=== PATIENT | female | born 1940 | race Caucasian/White ===

== ENCOUNTER → 2016-10-03 | Outpatient (REF) | payer MEDICARE, BC ==
[2016-10-03 12:58] LABS: PHOSPHORUS LEVEL 3.2 MG/DL (2.5-4.9)
== END ==
LOC: M LAB REF 12:16
DX: E03.9 Hypothyroidism, unspecified (principal); E83.52 Hypercalcemia

== ENCOUNTER → 2017-06-25 | Outpatient (CLI) | payer MEDICARE, BC ==
--- NOTE | 2017-06-25 15:38 | REPMRS ---
Patient History The patient states she has not had a clinical breast exam in over a year. Patient is postmenopausal. No known family history of cancer. Digital Woman Screen Mammo: June 25, 2017 - Exam #: [id number] Bilateral CC and MLO view(s) were taken. Technologist: Marcela Rome, Technologist Prior study comparison: June 15, 2013, digital woman screen mammo performed at [facility] to [facility]. September 25, 2011, bilateral bilat screen digital mammo performed at [facility] to [facility]. FINDINGS: There are scattered fibroglandular densities. There has been no change in the appearance of the mammogram from the prior studies. There is a mild amount of scattered fibroglandular density which is fairly symmetric. There is no interval development of dominant mass, architectural distortion, or clustered microcalcification suggestive of malignancy. ASSESSMENT: BI-RADS/ACR category 1 mammogram. Negative. Recommendation Routine screening mammogram in 1 year (for women over age 40). This mammogram was interpreted with the aid of an FDA-approved computer-aided dectection system. Electronically Signed By: Bryan Beltran MD 06/25/17 [id number]
== END ==
LOC: M WHC 13:34
PROVIDERS: ATTEND Family Medicine
DX: Z12.31 Encounter for screening mammogram for malignant neoplasm of breast (principal)

== ENCOUNTER 2018-01-04 09:35 | Day surgery (SDC) | payer MEDICARE, BC ==
[~2018-01-04 09:35] MED LIST: LIDOCAINE 2% INJ 100 MG/5 ML SDV (FOR ANES.) As Ordered; PROPOFOL 200 MG/20 ML VIAL As Ordered
[2018-01-04] MEDS: NS 1,000 ML IV (09:51)
[2018-01-04 10:04] LABS: BEDSIDE GLUCOSE 128 MG/DL (83-110)
[2018-01-04] MEDS ORDERED: PROPOFOL 200 MG/20 ML VIAL As Ordered (10:16)
== END 2018-01-04 13:00 | disposition home or self-care (01) ==
LOC: M OPP 09:35
DX: Z12.11 Encounter for screening for malignant neoplasm of colon (principal); Z86.010 Personal history of colon polyps; D12.0 Benign neoplasm of cecum; K64.0 First degree hemorrhoids; K57.30 Diverticulosis of large intestine without perforation or abscess without bleeding; R00.8 Other abnormalities of heart beat; I10 Essential (primary) hypertension; E78.5 Hyperlipidemia, unspecified; E11.9 Type 2 diabetes mellitus without complications; D64.9 Anemia, unspecified; Z86.11 Personal history of tuberculosis; M19.90 Unspecified osteoarthritis, unspecified site; F41.9 Anxiety disorder, unspecified; Z88.0 Allergy status to penicillin; Z79.84 Long term (current) use of oral hypoglycemic drugs; Z79.899 Other long term (current) drug therapy; Z80.1 Family history of malignant neoplasm of trachea, bronchus and lung; Z87.891 Personal history of nicotine dependence
CPT/HCPCS: 45380

== ENCOUNTER → 2020-02-02 | Outpatient (REF) | payer MEDICARE, BC ==
[~2020-02-02] MED LIST changes: +HAIR1CAP2 PO; +HAIRTAB5 PO; -LIDOCAINE 2% INJ 100 MG/5 ML SDV (FOR ANES.) As Ordered; +LOSA25TA14 PO; +METF500T13 PO; +METO1TAB87 PO; +MULTCHW14 PO; -PROPOFOL 200 MG/20 ML VIAL As Ordered; +SERT50TA29 PO; +SIMV20TA22 PO; +VITA100066 PO
[2020-02-02 18:05] LABS: PERCENT SATURATION 36.3 % (13.2-45.0)
== END ==
LOC: M LAB REF 16:20
PROVIDERS: ATTEND Family Medicine
DX: D56.9 Thalassemia, unspecified (principal); D64.9 Anemia, unspecified

== ENCOUNTER 2020-12-03 10:00 | Inpatient (IN) | payer MEDICARE, BC ==
[~2020-12-03] VITALS: Ht 165.1 cm; Wt 101.0 kg
[2020-12-03] MEDS ORDERED: CLOP75TA2 PO (10:28)
--- NOTE | 2020-12-03 10:43 | REP ---
INDICATION: vertigo. COMPARISON: CT head 02/26/2015. TECHNIQUE: Axial CT images with multiplanar reformations. FINDINGS: No acute bleed or acute large vessel territorial infarct. Ventricles, cisterns and sulci within normal limits. No mass effect or midline shift. No abnormal fluid collections. Paranasal sinuses and mastoid air cells are clear. Incidental note made of cavum septum pellucidum et vergae Old right cerebellar infarct is unchanged from the comparison study 02/26/2015. IMPRESSION: No acute findings Old right cerebellar infarct, stable. <Electronically signed by Chris Tan > 12/03/20 [id number]
[2020-12-03] MEDS ORDERED: LOSARTAN 25 MG TAB PO ONE (11:15)
[2020-12-03] MEDS ORDERED: CLOPIDOGREL 75 MG TAB PO ONE (11:15)
[2020-12-03] MEDS ORDERED: METOPROLOL TART 25 MG TABLET PO ONE (11:15)
[2020-12-03] MEDS ORDERED: metFORMIN (GLUCOPHAGE) 500MG TAB PO ONE (11:15)
[2020-12-03] MEDS ORDERED: SERTRALINE HCL 50 MG TAB PO ONE (11:15)
[2020-12-03 11:16] LABS: HEMATOCRIT 33.4 % (36.0-47.0); HEMOGLOBIN 10.3 g/dl (12.0-15.5); MEAN CORPUSCULAR HEMOGLOBIN 20.7 pg (27.0-33.0); MEAN CORPUSCULAR HGB CONC 30.8 g/dl (32.0-36.5); MEAN CORPUSCULAR VOLUME 67.2 fl (80.0-96.0); PLATELET COUNT, AUTOMATED 172 10^3/uL (150-450); RED BLOOD COUNT 4.97 10^6/uL (4.00-5.40); WHITE BLOOD COUNT 7.4 10^3/uL (4.0-10.0)
[2020-12-03 11:47] LABS: BLOOD UREA NITROGEN 13 MG/DL (7-18); CARBON DIOXIDE LEVEL 23 MEQ/L (21-32); CHLORIDE LEVEL 108 MEQ/L (98-107); CK-MB VALUE MASS < 1.0 NG/ML (<3.6); CPK CREATINE PHOSPHOKINASE 39 U/L (26-192); CREATININE FOR GFR 0.67 MG/DL (0.55-1.30); GLOMERULAR FILTRATION RATE > 60.0 (>39); GLUCOSE, FASTING 120 MG/DL (70-100); MB/CK RELATIVE INDEX 2.56 (< OR =4); SODIUM LEVEL 140 MEQ/L (136-145); TROPONIN I 0.04 NG/ML (< 0.10)
--- NOTE | 2020-12-03 13:57 | REP ---
INDICATION: CVA. COMPARISON: None. TECHNIQUE: Axial T1, T2, diffusion, gradient echo and sagittal T1 weighted images of the brain are obtained. FINDINGS: There is a small focus of restricted diffusion posterior to the right dentate nucleus within the cerebellum. There are scattered white matter changes within the cerebellar hemispheres. There is tissue loss in the right cerebellar hemisphere consistent with prior infarction. Small amount tissue loss also seen on the left. Scattered nonspecific white matter changes are seen throughout the cerebral hemispheres. IMPRESSION: 1. Small wugtn-ii-slkwdusn infarct in the right cerebellar hemisphere posterior to the right dentate nucleus. No hemorrhage. 2. Old cerebellar infarcts, greater on the right. 3. Age-related volume loss and chronic small vessel ischemic changes. Findings discussed with Dr. Rios at the time of interpretation. <Electronically signed by Chris Tan > 12/03/20 [id number]
[2020-12-03] MEDS ORDERED: CVS-161 PO (14:50)
[2020-12-03] MEDS ORDERED: D31000TA2 PO (14:50)
--- NOTE | 2020-12-03 15:31 | ECGEPIP ---
[facility] - ED Test Date: 2020-12-03 Pat Name: NICK POLLARD Department: Room: - Gender: Female Manager Community Outreach: HERNÁN : [id number] Requested By: Charli Rosen Order Number: [id number] Reading MD: Sammy Haynes Measurements Intervals [place] Rate: 65 P: 88 ID: [id number] QRS: -36 QRSD: 78 T: -27 QT: 400 QTc: 416 Interpretive Statements Normal sinus rhythm Left axis deviation Minimal voltage criteria for LVH, may be normal variant ( R in aVL ) Delayed anterior R wave progression Nonspecific ST-T wave abnormalities Similar to tracing done 02-26-15 Electronically Signed on 12-03-2020 15:31:26 EDT by Sammy Haynes
[2020-12-03] MEDS ORDERED: GLUCOSE 4GM CHEW TABLET PO PRN (15:35)
[2020-12-03] MEDS ORDERED: GLUCAGON INJ 1MG VIAL SC PRN (15:35)
[2020-12-03] MEDS ORDERED: DEXTROSE 50% 50 ML SYRINGE IV PRN (15:35)
--- NOTE | 2020-12-03 16:30 | REP ---
INDICATION: CVA. COMPARISON: None. TECHNIQUE: [id number] MRA of the brain. FINDINGS: The left vertebral artery is dominant. Basilar artery and cookie mixer helper are unremarkable. Internal carotid arteries, proximal and distal MCA branches are normal. A1 segments and YELENA branches are unremarkable. IMPRESSION: Normal examination. <Electronically signed by Chris Tan > 12/03/20 [id number]
--- NOTE | 2020-12-03 16:32 | REP ---
INDICATION: CVA. COMPARISON: None. TECHNIQUE: [id number] MRA of the neck FINDINGS: On the right, the common and internal carotid arteries are widely patent. Vertebral artery is present throughout its cervical course. On the left, the common and internal carotid arteries are widely patent. Vertebral artery is present throughout its cervical course. IMPRESSION: Normal examination. No evidence of a carotid stenosis or occlusion. Vertebral arteries present and patent throughout their cervical course. <Electronically signed by Chris Tan > 12/03/20 [id number]
--- NOTE | 2020-12-03 16:52 | HPEPDOC ---
General Date of Admission Dec 03, 2020 Date of Service: Dec 03, 2020 Chief Complaint The patient is a 80-year-old female admitted with a reason for visit of Dizziness. Source: Patient History of Present Illness Mrs. Gates is a 80 year old female with history of old cerebellar infarcts, DM type 2, and HTN who presents with vertigo. Yesterday, she was in good health. This morning, she sat up in bed feeling off. She didn't know how to describe it. She laid back down and suddenly had vertigo. She felt the room spin, and she had double vision. She felt nauseous but did not vomit. Denies fever/chills, chest pain, dyspnea, abdominal pain, or dysuria. She called her daughter who called EMS. When EMS arrived, she could not stand to reach the stretcher. By the time she arrived to the ED, the vertigo was improving and the vertigo sensation gradually disappeared. In the ED, she had a CT head which demonstrated old right cerebellar infarct. On MRI, she had an acute to subacute infarct in the right cerebellar hemisphere posterior to the right dentate nucleus. There are also old cerebrellar infarcts, greater on the right. When I spoke with the patient, she no longer had vertigo. Neurologically intact, CN 3-12 grossly intact, pronator drift negative, and finger to nose is intact. Otherwise, patient is going through grief. She lost her a year ago. She has been having poor sleep, poor appetite, and feeling fatigued. She does have good support from her offsprings. She also recently had COVID vaccine (Moderna) and her last vaccine was 10/09/2020. She wonders if her fatigue is related to the vaccine. Patient will be admitted for acute CVA. We will finish the rest of the stroke work up here. Home Medications Scheduled Cholecalciferol (Vitamin D3) (Vitamin D3) 1,000 Unit Tablet, 1,000 UNITS PO DAILY, (Reported) Clopidogrel Bisulfate (Clopidogrel) 75 Mg Tablet, 75 MG PO DAILY, (Reported) Losartan Potassium (Losartan Potassium) 25 Mg Tab, 25 MG PO DAILY, (Reported) Metformin HCl (Metformin HCl) 500 Mg Tab, 500 MG PO BID, (Reported) Metoprolol Tartrate (Metoprolol Tartrate) 25 Mg Tab, 25 MG PO BID, (Reported) Multivitamin with Minerals (Hair, Skin and Nails) 1 Each Tablet, 2 TAB PO DAILY, (Reported) Sertraline HCl (Sertraline HCl) 50 Mg Tab, 50 MG PO DAILY, (Reported) Simvastatin (Simvastatin) 20 Mg Tab, 20 MG PO QHS, (Reported) Allergies Coded Allergies: RUKHSANA Inhibitors (Verified Allergy, Severe, angioedema, 12/03/20) aspirin (Verified Allergy, Severe, angioedema, 12/03/20) Penicillins (Verified Allergy, Intermediate, hives, 12/03/20) Past Medical History Medical History 1. Hypertension 2. Diabetes mellitus type 2 3. History of SVT broken with vagal maneuvers 4. Hyperlipidemia 5. Anxiety 6. Bilateral carpal tunnel Surgical History 1. Total hysterectomy 2. Cholecystectomy 3. Ovarian cyst 4. Left hand carpel tunnel release Family History Father: Patient does not know father's PMH Mother: from lung cancer Social History * Smoker: former Smoker (quit 52 years ago) Alcohol: Denies Drugs: denies A-FIB/CHADSVASC A-FIB History Current/History of A-Fib/PAF?: No Review of Systems Constitutional: Reports: Fatigue; Denies: Chills, Fever Eyes: Reports: Other (Had double vision when she had vertigo, now resolved) ENT: Denies: Sore Throat Skin: Denies: Rash Pulmonary: Denies: Dyspnea Cardiovascular: Reports: Palpitations (Occasional); Denies: Chest Pain Gastrointestinal: Reports: Nausea, Vomiting; Denies: Abdominal Pain, Diarrhea, Constipation Genitourinary: Denies: Dysuria Neurological: Reports: Numbness (right hand 2/2 carpal tunnel) Psych: Reports: Anxiety, Depression Physical Examination General Exam: Positive: Alert, Cooperative Eye Exam: Positive: EOMI; Negative: Sclera icteric ENT Exam: Positive: Atraumatic Neck Exam: Positive: Supple Chest Exam: Positive: Clear to auscultation; Negative: Rales, Rhonchi, Wheezing Heart Exam: Positive: Rate Normal, Regular Rhythm Abdomen Exam: Positive: Normal bowel sounds, Soft; Negative: Tenderness Extremity Exam: Positive: Edema (bilateral pitting) Neuro Exam: Positive: Normal Gait, Normal Speech, Cranial Nerves 3-12 NL Psych Exam: Positive: Anxiety Vital Signs Vital Signs Date Time Temp Pulse Resp B/P (MAP) Pulse Ox O2 Delivery O2 Flow Rate FiO2 12/03/20 11:49 167/74 12/03/20 11:48 67 12/03/20 10:15 97.6 20 98 Room Air Laboratory Data Labs 24H Laboratory Tests 2 12/03/20 10:59: Bedside Glucose (Misc Panel) 136H 12/03/20 11:04: Nucleated Red Blood Cells % (auto) 0.0, Anion Gap 9, Glomerular Filtration Rate > 60.0, Calcium Level 10.0, Total Creatine Kinase 39, Creatine Kinase MB < 1.0, Creatine Kinase MB Relative Index 2.56, Troponin I 0.04 CBC/BMP Laboratory Tests 12/03/20 11:04 Assessment/Plan Mrs. Gates is a 80 year old female with history of old cerebellar infarcts, DM type 2, and HTN who presents with vertigo and fount to have acute/subacute infarct in the right cerebellar hemisphere. Vertigo now has resolved. Will complete stroke work up with telemetry, echocardiogram with bubble study, MRA of the head and neck. Otherwise, we will order PT/OT Plan / VTE VTE Prophylaxis Ordered?: Yes Plan Plan 1. Acute right cerebellar infarct -Presented as vertigo, now resolved -Complete the stroke work up with MRA head and neck, echocardiogram with bubble study, and telemetry -Spoke with neurology, Dr. Bernard -Continue clopidogrel and simvastatin -Obtaining HbA1c and Lipid panel (will determine to increase statin based off of lipid panel) -Allow for permissive hypertension (SBP between 140 to 180) 2. Diabetes mellitus type 2 -Hold metformin while inpatient -Sliding scale insulin -Carbohydrate consistent diet 3. Anxiety/depression/grief -Continue Sertraline 4. Hypertension -Continue metoprolol tartrate -Hold losartan 5. History of SVT -She has broke in the past with vagal maneuvers -Continue metoprolol tartrate 6. DVT ppx -SCD and TEDs Disposition: Pending stroke work up LOUANN FREGOSO DO Dec 03, 2020 16:04
[2020-12-03 17:30] VITALS: BP 154/68
[2020-12-03] MEDS: HumaLOG INSULIN (NovoLOG) PER UNIT SC SCH ×2 (17:30→20:23)
[2020-12-03] MEDS: METOPROLOL TART 25 MG TABLET PO SCH (20:58)
[2020-12-03] MEDS: SIMVASTATIN 20 MG TAB PO SCH (20:59)
[2020-12-03 22:00] VITALS: BP 125/64
[2020-12-04 06:00] VITALS: BP 168/76
[2020-12-04 06:26] LABS: HEMATOCRIT 32.2 % (36.0-47.0); MEAN CORPUSCULAR HEMOGLOBIN 20.8 pg (27.0-33.0); MEAN CORPUSCULAR HGB CONC 31.1 g/dl (32.0-36.5); MEAN CORPUSCULAR VOLUME 66.9 fl (80.0-96.0); PLATELET COUNT, AUTOMATED 176 10^3/uL (150-450); RED BLOOD COUNT 4.81 10^6/uL (4.00-5.40); WHITE BLOOD COUNT 6.3 10^3/uL (4.0-10.0)
[2020-12-04 06:44] LABS: HEMOGLOBIN A1c 5.4 %
[2020-12-04 06:59] LABS: BLOOD UREA NITROGEN 12 MG/DL (7-18); CALCIUM LEVEL 9.9 MG/DL (8.8-10.2); CARBON DIOXIDE LEVEL 26 MEQ/L (21-32); CHLORIDE LEVEL 108 MEQ/L (98-107); CHOLESTEROL LEVEL 198 MG/DL (<200); CREATININE FOR GFR 0.64 MG/DL (0.55-1.30); GLOMERULAR FILTRATION RATE > 60.0 (>39); GLUCOSE, FASTING 100 MG/DL (70-100); HDL CHOLESTEROL 55 MG/DL (>40); LDL CHOLESTEROL 107 MG/DL (<100); NON-HDL-C 143 MG/DL; POTASSIUM SERUM 4.2 MEQ/L (3.5-5.1); SODIUM LEVEL 143 MEQ/L (136-145); TRIGLYCERIDES LEVEL 178 MG/DL (<150)
[2020-12-04] MEDS: HumaLOG INSULIN (NovoLOG) PER UNIT SC SCH ×4 (07:30→20:26)
[2020-12-04] MEDS ORDERED: ROSUVASTATIN 10 MG TAB (CRESTOR) PO SCH (09:00)
[2020-12-04] MEDS: CLOPIDOGREL 75 MG TAB PO SCH (10:15)
[2020-12-04] MEDS: SERTRALINE HCL 50 MG TAB PO SCH (10:15)
[2020-12-04] MEDS: VITAMIN D 1,000 INTERNATIONAL UNITS TABLET PO SCH (10:15)
[2020-12-04] MEDS: METOPROLOL TART 25 MG TABLET PO SCH ×2 (10:21→20:33)
[2020-12-04] MEDS ORDERED: ASPIRIN 81MG ENTERIC TABLET PO ONE (13:10)
--- NOTE | 2020-12-04 13:20 | IPNPDOC ---
Subjective Date Seen The patient was seen on 12/04/20. Subjective Chief Complaint/HPI No complaints this morning. No dizziness or nausea. No weakness. Objective Physical Examination General Exam: Positive: Alert, Cooperative Eye Exam: Positive: EOMI; Negative: Sclera icteric ENT Exam: Positive: Atraumatic Neck Exam: Positive: Supple Chest Exam: Positive: Clear to auscultation; Negative: Rales, Rhonchi, Wheezing Heart Exam: Positive: Rate Normal, Regular Rhythm Abdomen Exam: Positive: Normal bowel sounds, Soft; Negative: Tenderness Extremity Exam: Positive: Edema (bilateral pitting) Neuro Exam: Positive: Normal Gait, Normal Speech, Cranial Nerves 3-12 NL Psych Exam: Positive: Anxiety Assessment /Plan Assessment Mrs. Gates is a 80 year old female with history of old cerebellar infarcts, DM type 2, and HTN who presents with vertigo and fount to have acute/subacute infarct in the right cerebellar hemisphere. Vertigo now has resolved. Will complete stroke work up with telemetry, echocardiogram with bubble study, MRA of the head and neck. Otherwise, we will order PT/OT Acute right cerebellar infarct Presented as vertigo, now resolved MRI: There is a small focus of restricted diffusion posterior to the right dentate nucleus within the cerebellum.There are scattered white matter changes within the cerebellar hemispheres. There is tissue loss in the right cerebellar hemisphere consistent with prior infarction. Small amount tissue loss also seen on the left. MRA carotids clean, MRA head negative. Complete the stroke work up with MRA head and neck, echocardiogram with bubble study, and telemetry Continue clopidogrel and simvastatin will add asa. Allow for permissive hypertension (SBP between 140 to 180) Patient carries a diagnosis of allergy ASA as angioedema. however she does not believe it was so. At the time she had angioedema she was on ACEI and ASA and both were stopped . SHe believes it was the ACEI as it was a new med for her and she had been on ASA for years. She is Willing to try ASA while she is in [facility]. will start ASA. Diabetes mellitus type 2 Hold metformin while inpatient Sliding scale insulin Carbohydrate consistent diet Anxiety/depression/grief Lost her last year. Continue Sertraline Hypertension Continue metoprolol tartrate Hold losartan History of SVT She has broke in the past with vagal maneuvers Continue metoprolol tartrate DVT ppx SCD and TEDs Plan/VTE VTE Prophylaxis Ordered?: Yes VS, I&O, 24H, Fishbone Vital Signs/I&O Vital Signs Date Time Temp Pulse Resp B/P (MAP) Pulse Ox O2 Delivery O2 Flow Rate FiO2 12/04/20 10:21 83 121/73 12/04/20 06:00 97.9 18 93 Room Air I&O- Last 24 Hours up to 6 AM 12/04/20 06:00 Intake Total 150 ml Output Total 0 ml Balance 150 ml Laboratory Data 24H LABS Laboratory Tests 2 12/03/20 17:47: Bedside Glucose (Misc Panel) 120H 12/03/20 20:01: Bedside Glucose (Misc Panel) 120H 12/04/20 05:55: Nucleated Red Blood Cells % (auto) 0.0, Anion Gap 9, Glomerular Filtration Rate > 60.0, Estimated Mean Plasma Glucose 108, Hemoglobin A1c 5.4, Calcium Level 9.9, Triglycerides Level 178H, Total Cholesterol 198, LDL Cholesterol 107H, Non- HDL Cholesterol (LDL + VLDL) 143, Total HDL Cholesterol 55, Cholesterol/HDL Ratio 3.600 12/04/20 12:14: Bedside Glucose (Misc Panel) 114H CBC/BMP Laboratory Tests 12/04/20 05:55 Microbiology Microbiology 12/03/20 Respiratory Virus Panel (PCR) ([facility]) - Final, Complete CHANDNI GUAN MD Dec 04, 2020 13:20
[2020-12-04 14:00] VITALS: BP 134/68
[2020-12-04] MEDS: SIMVASTATIN 20 MG TAB PO SCH (20:33)
[2020-12-04 22:00] VITALS: BP 153/73
[2020-12-05 06:00] VITALS: BP 127/63
[2020-12-05 06:21] LABS: HEMATOCRIT 31.2 % (36.0-47.0); HEMOGLOBIN 9.7 g/dl (12.0-15.5); MEAN CORPUSCULAR HEMOGLOBIN 20.7 pg (27.0-33.0); MEAN CORPUSCULAR HGB CONC 31.1 g/dl (32.0-36.5); MEAN CORPUSCULAR VOLUME 66.7 fl (80.0-96.0); PLATELET COUNT, AUTOMATED 168 10^3/uL (150-450); RED BLOOD COUNT 4.68 10^6/uL (4.00-5.40)
[2020-12-05 06:47] LABS: BLOOD UREA NITROGEN 12 MG/DL (7-18); CALCIUM LEVEL 9.7 MG/DL (8.8-10.2); CARBON DIOXIDE LEVEL 26 MEQ/L (21-32); CHLORIDE LEVEL 107 MEQ/L (98-107); CREATININE FOR GFR 0.62 MG/DL (0.55-1.30); GLOMERULAR FILTRATION RATE > 60.0 (>39); GLUCOSE, FASTING 116 MG/DL (70-100); POTASSIUM SERUM 4.1 MEQ/L (3.5-5.1); SODIUM LEVEL 140 MEQ/L (136-145)
[2020-12-05] MEDS: HumaLOG INSULIN (NovoLOG) PER UNIT SC SCH ×2 (08:19→12:00)
[2020-12-05 08:20] VITALS: BP 127/63
[2020-12-05] MEDS: METOPROLOL TART 25 MG TABLET PO SCH (08:20)
[2020-12-05] MEDS: CLOPIDOGREL 75 MG TAB PO SCH (08:20)
[2020-12-05] MEDS: SERTRALINE HCL 50 MG TAB PO SCH (08:20)
[2020-12-05] MEDS: VITAMIN D 1,000 INTERNATIONAL UNITS TABLET PO SCH (08:20)
[2020-12-05] MEDS ORDERED: ASPIRIN 81MG ENTERIC TABLET PO SCH (09:00)
[2020-12-05] MEDS ORDERED: ASPI-551 PO (12:47)
[2020-12-05] MEDS ORDERED: SIMV40TA20 PO (13:50)
--- NOTE | 2020-12-05 14:56 | REP ---
INDICATION: evaluate for dvt , multiple strokes, positive bubble study COMPARISON: None. TECHNIQUE: Ellington scale and color Doppler evaluation bilateral lower extremities using linear high frequency transducer. FINDINGS: Ultrasound examination of the right and left lower extremity deep venous structures from the common femoral vein to the popliteal vein demonstrates normal compressibility flow and wave patterns in response to respiration and augmentation. There is no evidence for deep venous thrombosis. IMPRESSION: No evidence for deep venous thrombosis. <Electronically signed by Mathtew Andrade > 12/05/20 [id number]
[2020-12-05 16:00] VITALS: BP 124/68
--- NOTE | 2020-12-05 16:42 | DS.PDOC ---
Discharge Summary General Date of Admission Dec 03, 2020 at 15:23 Date of Discharge 12/05/20 Discharge Summary PROCEDURES PERFORMED DURING STAY: [None]. DISCHARGE DIAGNOSES: Acute on Chronic Right Cerebellar stoke SECONDARY DIAGNOSIS: DM HLD HTN Depression/anxiety/grief H/O SVT COMPLICATIONS/CHIEF COMPLAINT: Cerebrovascular Accident (Cva) Involving Cere bellu. HOSPITAL COURSE: Mrs. Gates is a 80 year old female with history of old cerebellar infarcts, DM type 2, and HTN who presents with vertigo and fount to have acute/subacute infarct in the right cerebellar hemisphere. Vertigo now has resolved. Will complete stroke work up with telemetry, echocardiogram with bubble study, MRA of the head and neck. Otherwise, we will order PT/OT Acute right cerebellar infarct Presented as vertigo, now resolved MRI: There is a small focus of restricted diffusion posterior to the right dentate nucleus within the cerebellum.There are scattered white matter changes within the cerebellar hemispheres. There is tissue loss in the right cerebellar hemisphere consistent with prior infarction. Small amount tissue loss also seen on the left. MRA carotids clean, MRA head negative. echocardiogram with bubble study positive On telemetry no cardiac arrhythmic events. Continue clopidogrel and simvastatin will added asa. Patient carries a diagnosis of allergy ASA as angioedema. however she does not believe it was so. At the time she had angioedema she was on ACEI and ASA and both were stopped . SHe believes it was the ACEI as it was a new med for her and she had been on ASA for years. She is Willing to try ASA while she is in the hospital. Patient tolerated ASA . Bubble study during echo positive Bilateral lower Ex dvt negative. referred to Dr Alberts for further evaluation Diabetes mellitus type 2 resume home meds Anxiety/depression/grief Lost her last year. Continue Sertraline Hypertension Continue metoprolol tartrate Hold losartan History of SVT She has broke in the past with vagal maneuvers Continue metoprolol tartrate DISCHARGE MEDICATIONS: Please see below. ALLERGIES: Please see below. PHYSICAL EXAMINATION ON DISCHARGE: VITAL SIGNS: Please see below. General Exam: Positive: Alert, Cooperative Eye Exam: Positive: EOMI; Negative: Sclera icteric ENT Exam: Positive: Atraumatic Neck Exam: Positive: Supple Chest Exam: Positive: Clear to auscultation; Negative: Rales, Rhonchi, Wheezing Heart Exam: Positive: Rate Normal, Regular Rhythm Abdomen Exam: Positive: Normal bowel sounds, Soft; Negative: Tenderness Extremity Exam: Positive: Edema (bilateral pitting) Neuro Exam: Positive: Normal Gait, Normal Speech, Cranial Nerves 3-12 NL Psych Exam: Positive: Anxiety LABORATORY DATA: Please see below. IMAGING: MRI: FINDINGS: There is a small focus of restricted diffusion posterior to the right dentate nucleus within the cerebellum. There are scattered white matter changes within the cerebellar hemispheres. There is tissue loss in the right cerebellar hemisphere consistent with prior infarction. Small amount tissue loss also seen on the left. Scattered nonspecific white matter changes are seen throughout the cerebral hemispheres. IMPRESSION: 1. Small pratk-cd-xjfiprsb infarct in the right cerebellar hemisphere posterior to the right dentate nucleus. No hemorrhage. 2. Old cerebellar infarcts, greater on the right. 3. Age-related volume loss and chronic small vessel ischemic changes. MRA: FINDINGS: The left vertebral artery is dominant. Basilar artery and operators teacher are unremarkable. Internal carotid arteries, proximal and distal MCA branches are normal. A1 segments and YELENA branches are unremarkable. IMPRESSION: Normal examination. Carotid MRI: On the right, the common and internal carotid arteries are widely patent. Vertebral artery is present throughout its cervical course. On the left, the common and internal carotid arteries are widely patent. Vertebral artery is present throughout its cervical course. IMPRESSION: Normal examination. No evidence of a carotid stenosis or occlusion. Vertebral arteries present and patent throughout their cervical course. ACTIVITY: [As tolerated]. DIET: Carb consistent DISCHARGE PLAN: Home DISCHARGE INSTRUCTIONS: Follow up with PMD in 1 week Follow up wit Dr Marshall Follow up with Dr Alberts. ITEMS TO FOLLOWUP ON ON OUTPATIENT: Echo reports. DISCHARGE CONDITION: [Stable]. TIME SPENT ON DISCHARGE: 40 minutes. Vital Signs/I&Os Vital Signs Date Time Temp Pulse Resp B/P (MAP) Pulse Ox O2 Delivery O2 Flow Rate FiO2 12/05/20 08:20 69 127/63 12/05/20 06:00 97.4 18 95 Room Air I&O- Last 24 Hours up to 6 AM 12/05/20 07:00 Intake Total 880 ml Output Total 0 ml Balance 880 ml Laboratory Data Labs 24H Laboratory Tests 2 12/04/20 20:11: Bedside Glucose (Misc Panel) 119H 12/05/20 05:46: Nucleated Red Blood Cells % (auto) 0.0, Anion Gap 7L, Glomerular Filtration Rate > 60.0, Calcium Level 9.7 4/21/21 11:41: Bedside Glucose (Misc Panel) 112H CBC/BMP Laboratory Tests 12/05/20 05:46 FSBS Laboratory Tests Test 12/04/20 20:11 12/05/20 11:41 Range/Units Bedside Glucose (Misc Panel) 119 112 83-110 MG/DL Microbiology Microbiology 12/03/20 Respiratory Virus Panel (PCR) ([facility]) - Final, Complete Discharge Medications Scheduled Aspirin (Aspirin EC) 81 Mg Tablet.dr, 81 MG PO DAILY Cholecalciferol (Vitamin D3) (Vitamin D3) 1,000 Unit Tablet, 1,000 UNITS PO DAILY, (Reported) Clopidogrel Bisulfate (Clopidogrel) 75 Mg Tablet, 75 MG PO DAILY, (Reported) Losartan Potassium (Losartan Potassium) 25 Mg Tab, 25 MG PO DAILY, (Reported) Metformin HCl (Metformin HCl) 500 Mg Tab, 500 MG PO BID, (Reported) Metoprolol Tartrate (Metoprolol Tartrate) 25 Mg Tab, 25 MG PO BID, (Reported) Multivitamin with Minerals (Hair, Skin and Nails) 1 Each Tablet, 2 TAB PO DAILY, (Reported) Sertraline HCl (Sertraline HCl) 50 Mg Tab, 50 MG PO DAILY, (Reported) Simvastatin (Simvastatin) 40 Mg Tablet, 40 MG PO QPM Allergies Coded Allergies: RUKHSANA Inhibitors (Verified Allergy, Severe, angioedema, 12/03/20) aspirin (Verified Allergy, Severe, angioedema, 12/03/20) Penicillins (Verified Allergy, Intermediate, hives, 12/03/20) CHANDNI GUAN MD Dec 05, 2020 16:42
--- NOTE | 2020-12-06 09:46 | ECHO ---
DATE OF PROCEDURE: 12/05/2020 Age: 80 Gender: Female Height: 165 cm Weight: 100 kg REFERRING PHYSICIAN: Florian Arora DO. INDICATION: Stroke. MEASUREMENTS: IVS 1.2 cm LV 5.1 cm LVPW 1.0 cm LA 3.8 cm Aorta 3.3 cm Left atrial volume index 30 IVC 2.2 cm Mitral E wave velocity 80 cm/s Mitral A wave 111 cm/s FINDINGS: This study is of acceptable technical quality considering the patients body habitus. Underlying sinus rhythm. Left ventricle has normal size and systolic function, I estimate overall EF approximately 65%. Mild LVH is noted. Right ventricle appears normal size and systolic function. Left atrium is mildly enlarged. Right atrium is normal size. Aortic valve is sclerotic, but it is tricuspid and has preserved mobility. There are minimal degenerative abnormalities of the mitral valve with mitral annular calcifications, but mobility of leaflets is preserved. Tricuspid valve appears normal. Pulmonic valve was not well seen. No pericardial effusion is noted. Inferior vena cava is dilated, but collapses with inspiration indicative of mildly elevated central venous pressure. Aortic arch and visualized segment of the aortic arch appear normal. Doppler interrogation of the aortic valve reveals trace insufficiency and no stenosis. There is also trace mitral and mild tricuspid insufficiency. Calculated pulmonary artery pressure is in the 30s corresponding to mild pulmonary hypertension. Mitral inflow pattern indicates grade 1 diastolic dysfunction. Injection of agitated saline through the peripheral veins reveals crossing of the contrast from right-sided to left-sided high chambers indicative of intracardiac shunt. CONCLUSIONS: 1. Study is of acceptable technical quality, underlying sinus rhythm. 2. Normal LV size with mild LVH and preserved LV systolic function. Grade 1 diastolic dysfunction. 3. Aortic sclerosis with no stenosis and trace insufficiency. 4. Trace mitral insufficiency. 5. Mild tricuspid insufficiency. 6. Elevated central venous pressure and at least mild pulmonary hypertension. 7. Positive bubble study indicative of intracardiac shunt. MTDD
== END 2020-12-05 16:56 | disposition home or self-care (01) | DRG 66 ==
LOC: M ED 10:00 → EDBD 10:00 → M ED INP 15:23 → ENRESERV 16:23 → M MSPAV 17:25
PROVIDERS: ADMIT Internal Medicine; ATTEND Internal Medicine Nephrology
DX: I63.9 Cerebral infarction, unspecified (principal); E11.9 Type 2 diabetes mellitus without complications; I10 Essential (primary) hypertension; F32.9 Major depressive disorder, single episode, unspecified; F41.9 Anxiety disorder, unspecified; Z79.899 Other long term (current) drug therapy; Z88.6 Allergy status to analgesic agent; Z88.0 Allergy status to penicillin; E78.5 Hyperlipidemia, unspecified

== ENCOUNTER → 2020-12-31 | Outpatient (CLI) | payer MEDICARE, BC ==
[~2020-12-31] MED LIST changes: +ASPI-551 PO; +CLOP75TA2 PO; +CVS-161 PO; +D31000TA2 PO; +SIMV40TA20 PO
== END ==
LOC: M LABSMTC 13:41
PROVIDERS: ATTEND Internal Medicine Cardiovascular Disease
DX: Z20.828 Contact with and (suspected) exposure to other viral communicable diseases (principal); Z11.59 Encounter for screening for other viral diseases

== ENCOUNTER → 2021-06-07 | Outpatient (CLI) | payer MEDICARE, BC | LOC: M LABSMTC 09:37 | PROVIDERS: ATTEND Internal Medicine Cardiovascular Disease | DX: Q21.1 Atrial septal defect (principal) ==

== ENCOUNTER → 2021-12-18 | Outpatient (REF) | payer MEDICARE, BC ==
[~2021-12-18] MED LIST changes: -D31000TA2 PO; +LOSA25TA13 PO; -LOSA25TA14 PO; +VITA100093 PO
== END ==
LOC: M LAB REF 12:27
PROVIDERS: ATTEND Family Medicine
DX: D64.9 Anemia, unspecified (principal)

== ENCOUNTER 2022-03-14 05:24 | Emergency (ER) | payer MEDICARE, BC ==
[~2022-03-14] VITALS: Ht 167.6 cm; Wt 90.9 kg
[2022-03-14] MEDS ORDERED: CRES10TA PO (06:11)
[2022-03-14] MEDS ORDERED: LIDOCAINE W/EPINEPHRINE 1% 20ML VIAL SC ONE (09:10)
[2022-03-14] MEDS ORDERED: fentaNYL 100 MCG/2 ML INJECTION IV ONE (09:10)
[2022-03-14 09:44] LABS: BASO % 0.3 % (0.0-1.0); EOS # 0.1 10^3/uL (0.0-0.5); EOS % 0.5 % (0.0-3.0); HEMATOCRIT 31.2 % (36.0-47.0); HEMOGLOBIN 9.8 g/dl (12.0-15.5); LYMPH # 1.4 10^3/uL (1.5-5.0); LYMPH % 13.8 % (24.0-44.0); MEAN CORPUSCULAR HEMOGLOBIN 20.7 pg (27.0-33.0); MEAN CORPUSCULAR HGB CONC 31.4 g/dl (32.0-36.5); MONO # 0.9 10^3/uL (0.0-0.8); NEUTROPHILS # 7.9 10^3/uL (1.5-8.5); NEUTROPHILS % 75.9 % (36.0-66.0); PLATELET COUNT, AUTOMATED 169 10^3/uL (150-450); RED BLOOD COUNT 4.73 10^6/uL (4.00-5.40); WHITE BLOOD COUNT 10.4 10^3/uL (4.0-10.0)
[2022-03-14 10:04] LABS: BLOOD UREA NITROGEN 18 MG/DL (7-18); CALCIUM LEVEL 9.8 MG/DL (8.8-10.2); CARBON DIOXIDE LEVEL 23 MEQ/L (21-32); CHLORIDE LEVEL 111 MEQ/L (98-107); CREATININE FOR GFR 0.76 MG/DL (0.55-1.30); GLOMERULAR FILTRATION RATE > 60.0 (>39); GLUCOSE, FASTING 110 MG/DL (70-100); POTASSIUM SERUM 4.4 MEQ/L (3.5-5.1); SODIUM LEVEL 142 MEQ/L (136-145)
[2022-03-14] MEDS ORDERED: MORPHINE 2 MG/ML 1ML VIAL IV ONE (10:25)
[2022-03-14] MEDS ORDERED: ONDANSETRON 4MG 2ML VIAL IV ONE (10:25)
[2022-03-14] MEDS ORDERED: NS 500 ML IV ONE (10:25)
[2022-03-14] MEDS ORDERED: propofoL 200 MG/20 ML VIAL IV.PROC PRN (11:30)
[2022-03-14] MEDS ORDERED: NS 1,000 ML IV SCH (11:30)
[2022-03-14] MEDS ORDERED: KETAMINE HCL 200 MG/20 ML VIAL IV ONE (11:30)
[2022-03-14 13:15] VITALS: BP 146/65
== END 2022-03-14 13:58 | disposition home or self-care (01) ==
LOC: M ED 05:24
DX: S90.811A Abrasion, right foot, initial encounter (principal); S52.572A Other intraarticular fracture of lower end of left radius, initial encounter for closed fracture; I10 Essential (primary) hypertension; E11.9 Type 2 diabetes mellitus without complications; E78.5 Hyperlipidemia, unspecified; F41.9 Anxiety disorder, unspecified; Z86.73 Personal history of transient ischemic attack (TIA), and cerebral infarction without residual deficits; Z87.891 Personal history of nicotine dependence; Z88.0 Allergy status to penicillin; Z88.8 Allergy status to other drugs, medicaments and biological substances; Z79.899 Other long term (current) drug therapy; Z79.4 Long term (current) use of insulin; Y92.009 Unspecified place in unspecified non-institutional (private) residence as the place of occurrence of the external cause; Y93.9 Activity, unspecified; Y99.9 Unspecified external cause status
CPT/HCPCS: 73090; 73100; 73110; 73630; 80048; 85025; 93041; 94760; 96361; 96374; 96375; 99285; J2270; J2405; J3010

== ENCOUNTER → 2022-03-21 | Outpatient (CLI) | payer MEDICARE, BC ==
[~2022-03-21] MED LIST changes: +CRES10TA PO
== END ==
LOC: M SOG 14:44
PROVIDERS: ATTEND Orthopaedic Surgery Adult Reconstructive Orthopaedic Surgery
DX: M25.532 Pain in left wrist (principal)

== ENCOUNTER → 2022-04-03 | Outpatient (CLI) | payer MEDICARE, BC | LOC: M SOG 15:37 | PROVIDERS: ATTEND Orthopaedic Surgery Adult Reconstructive Orthopaedic Surgery | DX: S52.572D Other intraarticular fracture of lower end of left radius, subsequent encounter for closed fracture with routine healing (principal) ==

== ENCOUNTER 2022-04-07 06:38 | Inpatient (IN) | payer MEDICARE, BC ==
[~2022-04-07] VITALS: Ht 165.1 cm; Wt 99.0 kg
[2022-04-07 07:17] LABS: BASO % 0.4 % (0.0-1.0); EOS # 0.1 10^3/uL (0.0-0.5); EOS % 2.4 % (0.0-3.0); HEMATOCRIT 31.7 % (36.0-47.0); HEMOGLOBIN 9.9 g/dl (12.0-15.5); LYMPH # 1.8 10^3/uL (1.5-5.0); LYMPH % 32.7 % (24.0-44.0); MEAN CORPUSCULAR HEMOGLOBIN 20.8 pg (27.0-33.0); MEAN CORPUSCULAR HGB CONC 31.2 g/dl (32.0-36.5); MEAN CORPUSCULAR VOLUME 66.6 fl (80.0-96.0); MONO # 0.6 10^3/uL (0.0-0.8); MONO % 11.8 % (2.0-8.0); NEUTROPHILS # 2.8 10^3/uL (1.5-8.5); NEUTROPHILS % 52.5 % (36.0-66.0); PLATELET COUNT, AUTOMATED 195 10^3/uL (150-450); RED BLOOD COUNT 4.76 10^6/uL (4.00-5.40); WHITE BLOOD COUNT 5.4 10^3/uL (4.0-10.0)
[2022-04-07 07:46] LABS: INR 1.09; PROTHROMBIN TIME 14.5 SECONDS (12.7-14.5)
[2022-04-07 07:47] LABS: PARTIAL THROMBOPLASTIN TIME 28.5 SECONDS (25.9-37.0)
[2022-04-07 07:57] LABS: BLOOD UREA NITROGEN 17 MG/DL (7-18); CALCIUM LEVEL 9.8 MG/DL (8.8-10.2); CARBON DIOXIDE LEVEL 23 MEQ/L (21-32); CHLORIDE LEVEL 109 MEQ/L (98-107); CREATININE FOR GFR 0.72 MG/DL (0.55-1.30); GLOMERULAR FILTRATION RATE > 60.0 (>39); GLUCOSE, FASTING 115 MG/DL (70-100); POTASSIUM SERUM 4.2 MEQ/L (3.5-5.1); SODIUM LEVEL 138 MEQ/L (136-145)
[2022-04-07 08:02] LABS: CK-MB VALUE MASS < 1.0 NG/ML (<3.6); CPK CREATINE PHOSPHOKINASE 36 U/L (26-192); MB/CK RELATIVE INDEX 2.78 (< OR =4)
[2022-04-07] MEDS ORDERED: NS 1,000 ML IV ONE (09:00)
[2022-04-07] MEDS ORDERED: ONDANSETRON 4MG 2ML VIAL IV ONE (09:00)
[2022-04-07] MEDS ORDERED: ZOLO100T PO (10:08)
[2022-04-07] MEDS ORDERED: ASPI81TA26 PO (10:08)
[2022-04-07] MEDS ORDERED: HOME MED LIST COMPLETE! XX SCH (10:10)
[2022-04-07 10:17] LABS: BACTERIA, URINE SMALL AMOUNT; HYALINE CAST, URINE NONE SEEN /lpf (0-1); MUCUS, URINE SMALL AMOUNT (NEGATIVE); RBC, URINE 0-1 /hpf (0-3); SQUAMOUS EPITHELIAL CELL URINE MOD AMOUNT /hpf (SMALL AMT)
[2022-04-07 10:19] LABS: RSV AMPLIFICATION NEGATIVE (NEGATIVE)
[2022-04-07] MEDS ORDERED: MECLIZINE 25 MG TABLET PO PRN (10:20)
[2022-04-07] MEDS ORDERED: PROMETHAZINE 25MG/ML 1ML VIAL IV PRN (10:20)
[2022-04-07] MEDS ORDERED: DEXTROSE 50% 50 ML SYRINGE IV PRN (11:50)
[2022-04-07] MEDS ORDERED: GLUCAGON INJ 1MG VIAL SC PRN (11:50)
[2022-04-07] MEDS ORDERED: GLUCOSE 4GM CHEW TABLET PO PRN (11:50)
[2022-04-07] MEDS ORDERED: INSULIN LISPRO (NovoLOG) PER UNIT SC SCH ×2 (12:00→21:00)
[2022-04-07] MEDS: cefTRIAXone SOD 1 GM in D5W MINI-BAG PLUS 50 ML IV SCH (13:51)
[2022-04-07] MEDS: NS 1,000 ML IV SCH (13:51)
[2022-04-07] MEDS: ASPIRIN 81MG ENTERIC TABLET PO SCH (16:35)
[2022-04-07] MEDS: ROSUVASTATIN 10 MG TAB (CRESTOR) PO SCH (16:36)
[2022-04-07] MEDS: SERTRALINE 100 MG TAB PO SCH (16:36)
[2022-04-07] MEDS: METOPROLOL TART 25 MG TABLET PO SCH ×2 (16:37→21:36)
[2022-04-07] MEDS: CLOPIDOGREL 75 MG TAB PO SCH (16:37)
[2022-04-07] MEDS: VITAMIN D 1,000 INTERNATIONAL UNITS TABLET PO SCH (16:38)
[2022-04-07] MEDS: INSULIN LISPRO (NovoLOG) PER UNIT SC SCH ×2 (16:38→17:30)
[2022-04-07] MEDS: LOSARTAN 25 MG TAB PO SCH (16:38)
[2022-04-07 17:55] VITALS: BP 133/63
[2022-04-07 20:00] VITALS: BP_SYST 124; BP_SYST 129; BP_DIAS 60; BP_DIAS 61
[2022-04-08] MEDS: NS 1,000 ML IV SCH (04:05)
[2022-04-08 06:00] VITALS: BP 119/57
[2022-04-08 06:23] LABS: HEMATOCRIT 29.4 % (36.0-47.0); MEAN CORPUSCULAR HEMOGLOBIN 20.8 pg (27.0-33.0); MEAN CORPUSCULAR HGB CONC 30.6 g/dl (32.0-36.5); MEAN CORPUSCULAR VOLUME 68.1 fl (80.0-96.0); PLATELET COUNT, AUTOMATED 177 10^3/uL (150-450); RED BLOOD COUNT 4.32 10^6/uL (4.00-5.40)
[2022-04-08 07:03] LABS: BLOOD UREA NITROGEN 8 MG/DL (7-18); CARBON DIOXIDE LEVEL 24 MEQ/L (21-32); CHLORIDE LEVEL 113 MEQ/L (98-107); CREATININE FOR GFR 0.65 MG/DL (0.55-1.30); GLOMERULAR FILTRATION RATE > 60.0 (>39); GLUCOSE, FASTING 100 MG/DL (70-100); POTASSIUM SERUM 4.2 MEQ/L (3.5-5.1); SODIUM LEVEL 140 MEQ/L (136-145)
[2022-04-08] MEDS: INSULIN LISPRO (NovoLOG) PER UNIT SC SCH ×2 (07:30→12:00)
[2022-04-08 10:31] VITALS: BP 121/58
[2022-04-08 10:33] VITALS: BP 121/58
[2022-04-08] MEDS: LOSARTAN 25 MG TAB PO SCH (10:33)
[2022-04-08] MEDS: METOPROLOL TART 25 MG TABLET PO SCH (10:33)
[2022-04-08] MEDS: ASPIRIN 81MG ENTERIC TABLET PO SCH (10:33)
[2022-04-08] MEDS: ROSUVASTATIN 10 MG TAB (CRESTOR) PO SCH (10:33)
[2022-04-08] MEDS: VITAMIN D 1,000 INTERNATIONAL UNITS TABLET PO SCH (10:33)
[2022-04-08] MEDS: CLOPIDOGREL 75 MG TAB PO SCH (10:33)
[2022-04-08] MEDS: SERTRALINE 100 MG TAB PO SCH (10:34)
[2022-04-08] MEDS: cefTRIAXone SOD 1 GM in D5W MINI-BAG PLUS 50 ML IV SCH (10:34)
[2022-04-08 12:49] LABS: HEMATOCRIT 29.2 % (36.0-47.0); HEMOGLOBIN 8.9 g/dl (12.0-15.5)
[2022-04-08] MEDS ORDERED: NITR-67 PO (13:52)
[2022-04-08 14:00] VITALS: BP 116/63
[2022-04-08] MEDS ORDERED: BACT800T5 PO (16:24)
== END 2022-04-08 17:15 | disposition home or self-care (01) | DRG 690 ==
LOC: EDBD 06:38 → M ED 06:38 → M ED INP 10:17 → ENRESERV 13:55 → M 4MAIN 17:45
PROVIDERS: ADMIT General Practice; ATTEND Family Medicine
DX: N39.0 Urinary tract infection, site not specified (principal); I10 Essential (primary) hypertension; E78.5 Hyperlipidemia, unspecified; E11.9 Type 2 diabetes mellitus without complications; R30.0 Dysuria; R42 Dizziness and giddiness; F32.A Depression, unspecified; F41.9 Anxiety disorder, unspecified; Z86.73 Personal history of transient ischemic attack (TIA), and cerebral infarction without residual deficits; Z79.82 Long term (current) use of aspirin; Z88.0 Allergy status to penicillin; Z79.899 Other long term (current) drug therapy; Z88.8 Allergy status to other drugs, medicaments and biological substances; Z87.891 Personal history of nicotine dependence

== ENCOUNTER → 2022-05-02 | Outpatient (CLI) | payer MEDICARE, BC ==
[~2022-05-02] MED LIST changes: +ASPI81TA26 PO; +BACT800T5 PO; +NITR-67 PO; +ZOLO100T PO
== END ==
LOC: M SOG 08:04
PROVIDERS: ATTEND Orthopaedic Surgery Adult Reconstructive Orthopaedic Surgery
DX: S52.572D Other intraarticular fracture of lower end of left radius, subsequent encounter for closed fracture with routine healing (principal)

== ENCOUNTER → 2022-06-06 | Outpatient (CLI) | payer MEDICARE, BC | LOC: M RAD 17:03 | PROVIDERS: ATTEND Orthopaedic Surgery Adult Reconstructive Orthopaedic Surgery | DX: S52.572D Other intraarticular fracture of lower end of left radius, subsequent encounter for closed fracture with routine healing (principal) ==

== ENCOUNTER → 2022-06-13 | Outpatient (CLI) | payer MEDICARE, BC | LOC: M SOG 08:27 | PROVIDERS: ATTEND Orthopaedic Surgery Adult Reconstructive Orthopaedic Surgery | DX: S52.572D Other intraarticular fracture of lower end of left radius, subsequent encounter for closed fracture with routine healing (principal) ==

== ENCOUNTER → 2023-07-03 | Outpatient (REF) | payer MEDICARE, BC ==
[2023-07-03 17:23] LABS: PERCENT SATURATION 7.9 % (13.2-45.0)
[2023-07-03 17:26] LABS: FOLATE 7.5 NG/ML (>5.4)
== END ==
LOC: M LAB REF 16:17
PROVIDERS: ATTEND Family Medicine
DX: D64.9 Anemia, unspecified (principal)

== ENCOUNTER → 2023-10-22 | Outpatient (CLI) | payer MEDICARE, BC ==
[~2023-10-22] MED LIST changes: +ISOVUE-370 76% 100ML VIAL ONE
== END ==
LOC: M PLAIMG 08:56
PROVIDERS: ATTEND Family Medicine
DX: R59.0 Localized enlarged lymph nodes (principal)
CPT/HCPCS: 70491; Q9967

== ENCOUNTER 2023-11-21 13:31 | Inpatient (IN) | payer MEDICARE, BC ==
[2023-11-21] VITALS (20 sets, daily range): BP systolic 120–173; BP diastolic 58–73; TEMP 97; O2SAT 93–98
[~2023-11-21] VITALS: Ht 160 cm; Wt 87.4 kg
[~2023-11-21 13:31] MED LIST changes: -ISOVUE-370 76% 100ML VIAL ONE
[2023-11-21] MEDS: NS 1,000 ML IV ONE (14:05)
[2023-11-21 14:42] LABS: VENOUS BASE EXCESS -0.5 (-2.0-2.0); VENOUS HCO3 24.4 MMOL/L (23.0-27.0); VENOUS O2 SATURATION 68.8 % (60.0-80.0); VENOUS PARTIAL PRESSURE CO2 40.7 mmHg (38.0-50.0); VENOUS PARTIAL PRESSURE O2 38.2 mmHg (30.0-50.0); VENOUS PH 7.395 UNITS (7.330-7.430); VENOUS STANDARD HCO3 23.6 MMOL/L; VENOUS TOTAL CO2 25.6 MMOL/L (24.0-28.0)
[2023-11-21 14:49] LABS: BASO % 0.3 % (0.0-1.0); EOS # 0.1 10^3/uL (0.0-0.5); EOS % 0.5 % (0.0-3.0); HEMATOCRIT 30.5 % (36.0-47.0); HEMOGLOBIN 9.7 g/dl (12.0-15.5); LYMPH % 9.5 % (24.0-44.0); MEAN CORPUSCULAR HEMOGLOBIN 20.1 pg (27.0-33.0); MEAN CORPUSCULAR HGB CONC 31.8 g/dl (32.0-36.5); MEAN CORPUSCULAR VOLUME 63.3 fl (80.0-96.0); MONO # 1.1 10^3/uL (0.0-0.8); NEUTROPHILS # 7.9 10^3/uL (1.5-8.5); NEUTROPHILS % 78.5 % (36.0-66.0); PLATELET COUNT, AUTOMATED 214 10^3/uL (150-450); RED BLOOD COUNT 4.82 10^6/uL (4.00-5.40); WHITE BLOOD COUNT 10.1 10^3/uL (4.0-10.0)
[2023-11-21 15:05] LABS: INR 1.23; PROTHROMBIN TIME 15.1 SECONDS (12.5-14.5)
[2023-11-21 15:20] LABS: CK-MB VALUE MASS < 1.0 NG/ML (<3.6)
[2023-11-21 15:22] LABS: ALBUMIN 3.4 G/DL (3.2-5.2); ALKALINE PHOSPHATASE 74 U/L (46-116); ALT/SGPT 14 U/L (7.0-40); AST/SGOT 15 U/L (<34); BILIRUBIN,DIRECT 0.3 MG/DL (<0.4); BILIRUBIN,TOTAL 0.8 MG/DL (0.3-1.2); BLOOD UREA NITROGEN 17 MG/DL (9-23); CALCIUM LEVEL 10.1 MG/DL (8.3-10.6); CARBON DIOXIDE LEVEL 26 MMOL/L (20-31); CHLORIDE LEVEL 103 MMOL/L (98-107); CPK CREATINE PHOSPHOKINASE 27 U/L (34-145); CREATININE FOR GFR 0.68 MG/DL (0.55-1.30); GLOMERULAR FILTRATION RATE > 60.0 (>32); GLUCOSE, FASTING 130 MG/DL (74-106); MAGNESIUM LEVEL 1.9 MG/DL (1.8-2.4); POTASSIUM SERUM 4.4 MMOL/L (3.5-5.1); SODIUM LEVEL 138 MMOL/L (136-145)
[2023-11-21 15:24] LABS: THYROID STIMULATING HORMONE 2.411 uIU/ML (0.55-4.78)
[2023-11-21] MEDS ORDERED: ISOVUE-370 76% 100ML VIAL As Ordered ONE (15:26)
[2023-11-21] MEDS: ENOXAPARIN 100MG/1ML SYRINGE (J1650 PER 10MG) SC ONE (16:49)
[2023-11-21 17:05] LABS: CK-MB VALUE MASS < 1.0 NG/ML (<3.6)
[2023-11-21 17:06] LABS: CPK CREATINE PHOSPHOKINASE 29 U/L (34-145); MB/CK RELATIVE INDEX 3.44 (< OR =4)
[2023-11-21] MEDS ORDERED: GLUCOSE 4GM CHEW TABLET PO PRN (18:25)
[2023-11-21] MEDS ORDERED: DEXTROSE 50% 50ML SYRINGE IV PRN (18:25)
[2023-11-21] MEDS ORDERED: MOM 30ML SUSPENSION UDC PO PRN (18:25)
[2023-11-21] MEDS ORDERED: GLUCAGON INJ 1MG VIAL SC PRN (18:25)
[2023-11-21] MEDS ORDERED: HOME MED LIST COMPLETE! XX SCH (18:50)
[2023-11-21 20:48] LABS: INR 1.33; PROTHROMBIN TIME 16.1 SECONDS (12.5-14.5)
[2023-11-21] MEDS: DOCUSATE SODIUM 100MG CAPSULE PO SCH (21:00)
[2023-11-21] MEDS ORDERED: INSULIN LISPRO (NovoLOG) PER UNIT SC SCH (21:00)
[2023-11-21 21:42] LABS: GLOMERULAR FILTRATION RATE > 60.0 (>32)
[2023-11-21] MEDS: ROSUVASTATIN 10 MG TAB (CRESTOR) PO SCH (22:01)
[2023-11-21] MEDS ORDERED: MIDAZOLAM INJ 2MG/2ML VIAL As Ordered ONE (22:07)
[2023-11-21] MEDS ORDERED: flumazeniL 0.5MG/5ML VIAL As Ordered ONE (22:07)
[2023-11-21] MEDS ORDERED: BISACODYL 10MG SUPP PR PRN (22:20)
[2023-11-21] MEDS ORDERED: LEVALBUTEROL 1.25MG 0.5ML CONCENTRATE NEB NEB PRN (22:20)
[2023-11-21] MEDS ORDERED: PERCOCET 5MG/325MG TAB PO PRN ×2 (22:20)
[2023-11-21] MEDS: KCL 20MEQ IN D5/NS 1000ML 1,000 ML IV SCH (22:54)
[2023-11-21] MEDS ORDERED: LIDOCAINE 1% MDV 20ML VIAL As Ordered ONE (22:56)
[2023-11-21 22:58] LABS: LDH LACTATE DEHYDROGENASE 159 U/L (120-246)
[2023-11-21 23:52] LABS: PH BODY FLUID 7.733 UNITS (NOT ESTABLISHED); SOURCE, BODY FLUID pH PLEURAL
[2023-11-21] MEDS: KETOROLAC 30 MG/ML 1ML VIAL IV SCH (23:57)
[2023-11-21] MEDS: MIDAZOLAM INJ 2MG/2ML VIAL IV ONE ×3 (23:57)
[2023-11-22] VITALS (7 sets, daily range): BP systolic 98–147; BP diastolic 51–62; TEMP 97.4–98.3; O2SAT 94–99
[2023-11-22 00:08] LABS: SOURCE, BODY FLUID ALBUMIN PLEURAL
[2023-11-22 00:12] LABS: SOURCE, BODY FLUID GLUCOSE PLEURAL
[2023-11-22 00:13] LABS: SOURCE, BODY FLUID TRIG PLEURAL; TRIGLYCERIDE, BODY FLUID 21 MG/DL (NOT ESTABLISHED)
[2023-11-22 00:14] LABS: LDH, BODY FLUID 166 U/L (NOT ESTABLISHED); SOURCE, BODY FLUID LDH PLEURAL
[2023-11-22 00:15] LABS: AMYLASE, BODY FLUID < 20 U/L (NOT ESTABLISHED); CHOLESTEROL, BODY FLUID 52 MG/DL (NOT ESTABLISHED); SOURCE, BODY FLUID AMYLASE PLEURAL; SOURCE, BODY FLUID CHOL PLEURAL; SOURCE, BODY FLUID TOT PROTEIN PLEURAL; TOTAL PROTEIN, BODY FLUID 4.5 G/DL (NOT ESTABLISHED)
[2023-11-22 00:40] LABS: APPEARANCE, BODY FLUID HAZY (CLEAR); PLEURAL FL COLOR YELLOW (COLORLESS); SOURCE, BODY FLUID PLEURAL
[2023-11-22] MEDS: LIDOCAINE 1% MDV 20ML VIAL SC ONE (01:03)
[2023-11-22] MEDS: COLCHICINE 0.6 MG TABLET PO ONE (01:34)
[2023-11-22] MEDS: ACETAMINOPHEN TAB 650MG DOSE (2X325MG) PO PRN (01:35)
[2023-11-22] MEDS: LEVALBUTEROL 1.25MG 0.5ML CONCENTRATE NEB NEB SCH (02:00)
[2023-11-22] MEDS: MORPHINE 4 MG/ML 1ML VIAL IV PRN (02:28)
[2023-11-22] MEDS: ONDANSETRON 4MG 2ML VIAL IV PRN (03:30)
[2023-11-22 04:00] LABS: BASO % 0.2 % (0.0-1.0); EOS # 0.1 10^3/uL (0.0-0.5); EOS % 0.4 % (0.0-3.0); HEMATOCRIT 28.5 % (36.0-47.0); LYMPH % 7.2 % (24.0-44.0); MEAN CORPUSCULAR HEMOGLOBIN 20.2 pg (27.0-33.0); MEAN CORPUSCULAR HGB CONC 31.6 g/dl (32.0-36.5); MONO # 1.1 10^3/uL (0.0-0.8); MONO % 7.6 % (2.0-8.0); NEUTROPHILS # 11.9 10^3/uL (1.5-8.5); NEUTROPHILS % 84.4 % (36.0-66.0); PLATELET COUNT, AUTOMATED 193 10^3/uL (150-450); RED BLOOD COUNT 4.45 10^6/uL (4.00-5.40); WHITE BLOOD COUNT 14.1 10^3/uL (4.0-10.0)
[2023-11-22 04:22] LABS: BLOOD UREA NITROGEN 12 MG/DL (9-23); CALCIUM LEVEL 8.7 MG/DL (8.3-10.6); CARBON DIOXIDE LEVEL 26 MMOL/L (20-31); CHLORIDE LEVEL 106 MMOL/L (98-107); GLOMERULAR FILTRATION RATE > 60.0 (>32); GLUCOSE, FASTING 186 MG/DL (74-106); POTASSIUM SERUM 3.6 MMOL/L (3.5-5.1); SODIUM LEVEL 138 MMOL/L (136-145)
[2023-11-22] MEDS: ENOXAPARIN 100MG/1ML SYRINGE (J1650 PER 10MG) SC SCH (05:43)
[2023-11-22 05:59] LABS: ABG BASE EXCESS -5.9 (-2.0-2.0); ABG HCO3 19.3 MMOL/L (22.0-26.0); ABG O2 SATURATION 94.8 % (95.0-99.0); ABG PARTIAL PRESSURE CO2 36.6 mmHg (35.0-45.0); ABG PARTIAL PRESSURE O2 85.4 mmHg (75.0-100.0); ABG STANDARD HCO3 19.6 MMOL/L. (22.0-26.0); ABG TOTAL CO2 20.4 MMOL/L (23.0-31.0)
[2023-11-22] MEDS ORDERED: INSULIN LISPRO (NovoLOG) PER UNIT SC SCH (07:30)
[2023-11-22] MEDS: VITAMIN D 1,000 INTERNATIONAL UNITS TABLET PO SCH (09:00)
[2023-11-22] MEDS: SERTRALINE 100 MG TAB PO SCH (09:00)
[2023-11-22] MEDS: PANTOPRAZOLE 40MG TAB (PROTONIX) PO SCH (09:00)
[2023-11-22] MEDS: ASPIRIN 81MG ENTERIC TABLET PO SCH (09:00)
[2023-11-22] MEDS: COLCHICINE 0.6 MG TABLET PO SCH (11:05)
[2023-11-22 11:34] LABS: PROCALCITONIN 0.05 ng/ml
[2023-11-22 11:48] LABS: HEMATOCRIT 27.9 % (36.0-47.0); HEMOGLOBIN 8.7 g/dl (12.0-15.5); MEAN CORPUSCULAR HEMOGLOBIN 19.8 pg (27.0-33.0); MEAN CORPUSCULAR HGB CONC 31.2 g/dl (32.0-36.5); MEAN CORPUSCULAR VOLUME 63.6 fl (80.0-96.0); PLATELET COUNT, AUTOMATED 174 10^3/uL (150-450); RED BLOOD COUNT 4.39 10^6/uL (4.00-5.40); WHITE BLOOD COUNT 7.5 10^3/uL (4.0-10.0)
[2023-11-22] MEDS: INSULIN LISPRO (NovoLOG) PER UNIT SC SCH ×2 (12:46→19:59)
[2023-11-22] MEDS ORDERED: HEPARIN SOD (PORCINE) 5000UNITS/ML 1ML VIAL/SYRINGE IV PRN (17:00)
[2023-11-22] MEDS: HEPARIN DRIP 25,000 UNITS in IV 1 EA IV SCH (18:05)
[2023-11-23] VITALS (29 sets, daily range): BP systolic 81–132; BP diastolic 49–67; TEMP 97.1–99.6; O2SAT 89–100
[2023-11-23 05:24] LABS: BASO % 0.2 % (0.0-1.0); EOS # 0.2 10^3/uL (0.0-0.5); EOS % 1.6 % (0.0-3.0); HEMATOCRIT 26.8 % (36.0-47.0); HEMOGLOBIN 8.4 g/dl (12.0-15.5); LYMPH # 0.8 10^3/uL (1.5-5.0); LYMPH % 8.1 % (24.0-44.0); MEAN CORPUSCULAR HEMOGLOBIN 19.9 pg (27.0-33.0); MEAN CORPUSCULAR HGB CONC 31.3 g/dl (32.0-36.5); MEAN CORPUSCULAR VOLUME 63.4 fl (80.0-96.0); MONO # 1.1 10^3/uL (0.0-0.8); MONO % 11.3 % (2.0-8.0); NEUTROPHILS # 7.9 10^3/uL (1.5-8.5); NEUTROPHILS % 78.5 % (36.0-66.0); PLATELET COUNT, AUTOMATED 172 10^3/uL (150-450); RED BLOOD COUNT 4.23 10^6/uL (4.00-5.40)
[2023-11-23 06:09] LABS: BLOOD UREA NITROGEN 16 MG/DL (9-23); CALCIUM LEVEL 8.8 MG/DL (8.3-10.6); CARBON DIOXIDE LEVEL 25 MMOL/L (20-31); CHLORIDE LEVEL 108 MMOL/L (98-107); CREATININE FOR GFR 0.71 MG/DL (0.55-1.30); GLOMERULAR FILTRATION RATE > 60.0 (>32); GLUCOSE, FASTING 129 MG/DL (74-106); POTASSIUM SERUM 4.4 MMOL/L (3.5-5.1); SODIUM LEVEL 138 MMOL/L (136-145)
[2023-11-23] MEDS: COLCHICINE 0.6 MG TABLET PO SCH (09:00)
[2023-11-23] MEDS: LIDOCAINE 1% MDV 20ML VIAL SC ONE (09:30)
[2023-11-23] MEDS: PANTOPRAZOLE 40MG VIAL IV SCH (12:18)
[2023-11-23] MEDS: ASPIRIN 81MG CHEW TABLET PO SCH (12:18)
[2023-11-23] MEDS: METOPROLOL TART 25 MG TABLET PO ONE (16:13)
[2023-11-23] MEDS: METOPROLOL TART 25 MG TABLET PO SCH (20:15)
[2023-11-23 22:27] LABS: ABG BASE EXCESS -3.7 (-2.0-2.0); ABG HCO3 20.2 MMOL/L (22.0-26.0); ABG O2 SATURATION 98.6 % (95.0-99.0); ABG PARTIAL PRESSURE O2 130.5 mmHg (75.0-100.0); ABG STANDARD HCO3 21.3 MMOL/L. (22.0-26.0); ABG TOTAL CO2 21.2 MMOL/L (23.0-31.0); ABG pH (ARTERIAL) 7.419 UNITS (7.350-7.450)
[2023-11-23] MEDS ORDERED: VANCOMYCIN HCL 1,000 MG, VIAL MATE ADAPTER 1 EACH in D5W 250 ML IV SCH (22:30)
[2023-11-23 22:42] LABS: BASO % 0.1 % (0.0-1.0); EOS % 0.2 % (0.0-3.0); HEMATOCRIT 22.2 % (36.0-47.0); HEMOGLOBIN 7.1 g/dl (12.0-15.5); LYMPH # 1.1 10^3/uL (1.5-5.0); LYMPH % 8.1 % (24.0-44.0); MEAN CORPUSCULAR HEMOGLOBIN 20.3 pg (27.0-33.0); MEAN CORPUSCULAR VOLUME 63.4 fl (80.0-96.0); MONO # 1.1 10^3/uL (0.0-0.8); MONO % 8.5 % (2.0-8.0); NEUTROPHILS # 10.7 10^3/uL (1.5-8.5); NEUTROPHILS % 82.6 % (36.0-66.0); PLATELET COUNT, AUTOMATED 267 10^3/uL (150-450)
[2023-11-23] MEDS: CEFEPIME HCL 2 GM in D5W MINI-BAG PLUS 50 ML IV SCH (23:07)
[2023-11-23 23:50] LABS: ALBUMIN 2.8 G/DL (3.2-5.2); ALKALINE PHOSPHATASE 82 U/L (46-116); ALT/SGPT 133 U/L (7.0-40); AST/SGOT 46 U/L (<34); BILIRUBIN,TOTAL 0.7 MG/DL (0.3-1.2); BLOOD UREA NITROGEN 18 MG/DL (9-23); CALCIUM LEVEL 8.8 MG/DL (8.3-10.6); CARBON DIOXIDE LEVEL 22 MMOL/L (20-31); CHLORIDE LEVEL 104 MMOL/L (98-107); CREATININE FOR GFR 0.73 MG/DL (0.55-1.30); GLOMERULAR FILTRATION RATE > 60.0 (>32); GLUCOSE, FASTING 188 MG/DL (74-106); POTASSIUM SERUM 4.5 MMOL/L (3.5-5.1); SODIUM LEVEL 135 MMOL/L (136-145); TOTAL PROTEIN 5.8 G/DL (5.7-8.2)
[2023-11-24] VITALS (80 sets, daily range): BP systolic 84–165; BP diastolic 53–101; TEMP 96–98.5; O2SAT 90–100
[2023-11-24] MEDS: PROTAMINE SULF 50MG 5ML VIAL IV STA (00:16)
[2023-11-24] MEDS: KETOROLAC 30 MG/ML 1ML VIAL IV ONE (00:55)
[2023-11-24] MEDS: VANCOMYCIN HCL 1,000 MG, VIAL MATE ADAPTER 1 EACH in D5W 250 ML IV ONE (01:34)
[2023-11-24] MEDS: LIDOCAINE 1% MDV 20ML VIAL SC ONE ×2 (01:38→13:40)
[2023-11-24] MEDS: MIDAZOLAM INJ 2MG/2ML VIAL IV STA ×2 (01:39→13:33)
[2023-11-24] MEDS: VANCOMYCIN HCL 750 MG, VIAL MATE ADAPTER 1 EACH in D5W 250 ML IV ONE (02:47)
[2023-11-24 04:31] LABS: MEAN CORPUSCULAR HEMOGLOBIN 22.8 pg (27.0-33.0); MEAN CORPUSCULAR HGB CONC 32.1 g/dl (32.0-36.5); MEAN CORPUSCULAR VOLUME 71.1 fl (80.0-96.0); RED BLOOD COUNT 4.08 10^6/uL (4.00-5.40); WHITE BLOOD COUNT 10.9 10^3/uL (4.0-10.0)
[2023-11-24 04:36] LABS: HEMOGLOBIN 9.3 g/dl (12.0-15.5); PLATELET COUNT, AUTOMATED 138 10^3/uL (150-450)
[2023-11-24 06:34] LABS: BASO % 0.2 % (0.0-1.0); HEMATOCRIT 30.2 % (36.0-47.0); HEMOGLOBIN 9.8 g/dl (12.0-15.5); LYMPH # 0.7 10^3/uL (1.5-5.0); LYMPH % 5.8 % (24.0-44.0); MEAN CORPUSCULAR HGB CONC 32.5 g/dl (32.0-36.5); MEAN CORPUSCULAR VOLUME 70.7 fl (80.0-96.0); MONO # 1.4 10^3/uL (0.0-0.8); MONO % 10.7 % (2.0-8.0); NEUTROPHILS # 10.5 10^3/uL (1.5-8.5); NEUTROPHILS % 82.6 % (36.0-66.0); PLATELET COUNT, AUTOMATED 163 10^3/uL (150-450); RED BLOOD COUNT 4.27 10^6/uL (4.00-5.40); WHITE BLOOD COUNT 12.7 10^3/uL (4.0-10.0)
[2023-11-24 06:50] LABS: BLOOD UREA NITROGEN 23 MG/DL (9-23); CALCIUM LEVEL 8.5 MG/DL (8.3-10.6); CARBON DIOXIDE LEVEL 22 MMOL/L (20-31); CHLORIDE LEVEL 104 MMOL/L (98-107); CREATININE FOR GFR 0.75 MG/DL (0.55-1.30); GLOMERULAR FILTRATION RATE > 60.0 (>32); GLUCOSE, FASTING 138 MG/DL (74-106); POTASSIUM SERUM 4.7 MMOL/L (3.5-5.1); SODIUM LEVEL 134 MMOL/L (136-145)
[2023-11-24 08:33] LABS: HEMATOCRIT 30.7 % (36.0-47.0); HEMOGLOBIN 10.1 g/dl (12.0-15.5); MEAN CORPUSCULAR HEMOGLOBIN 23.2 pg (27.0-33.0); MEAN CORPUSCULAR HGB CONC 32.9 g/dl (32.0-36.5); MEAN CORPUSCULAR VOLUME 70.6 fl (80.0-96.0); PLATELET COUNT, AUTOMATED 175 10^3/uL (150-450); RED BLOOD COUNT 4.35 10^6/uL (4.00-5.40); WHITE BLOOD COUNT 14.1 10^3/uL (4.0-10.0)
[2023-11-24 09:53] LABS: HEMATOCRIT 31.6 % (36.0-47.0); HEMOGLOBIN 10.3 g/dl (12.0-15.5); MEAN CORPUSCULAR HEMOGLOBIN 23.2 pg (27.0-33.0); MEAN CORPUSCULAR HGB CONC 32.6 g/dl (32.0-36.5); MEAN CORPUSCULAR VOLUME 71.2 fl (80.0-96.0); PLATELET COUNT, AUTOMATED 174 10^3/uL (150-450); RED BLOOD COUNT 4.44 10^6/uL (4.00-5.40); WHITE BLOOD COUNT 15.1 10^3/uL (4.0-10.0)
[2023-11-24] MEDS ORDERED: VANCOMYCIN HCL 750 MG, VIAL MATE ADAPTER 1 EACH in D5W 250 ML IV SCH (14:00)
[2023-11-24 18:27] LABS: HEMATOCRIT 28.5 % (36.0-47.0); HEMOGLOBIN 9.4 g/dl (12.0-15.5); MEAN CORPUSCULAR HEMOGLOBIN 23.1 pg (27.0-33.0); PLATELET COUNT, AUTOMATED 179 10^3/uL (150-450); RED BLOOD COUNT 4.07 10^6/uL (4.00-5.40); WHITE BLOOD COUNT 15.8 10^3/uL (4.0-10.0)
[2023-11-24] MEDS: SENNA 8.6 MG TAB (SENOKOT) PO SCH (20:10)
[2023-11-25] VITALS (26 sets, daily range): BP systolic 107–160; BP diastolic 54–67; TEMP 97.9–98.3; O2SAT 87–97
[2023-11-25 00:16] LABS: HEMATOCRIT 27.7 % (36.0-47.0); HEMOGLOBIN 9.1 g/dl (12.0-15.5); MEAN CORPUSCULAR HEMOGLOBIN 22.7 pg (27.0-33.0); MEAN CORPUSCULAR HGB CONC 32.9 g/dl (32.0-36.5); MEAN CORPUSCULAR VOLUME 69.1 fl (80.0-96.0); PLATELET COUNT, AUTOMATED 175 10^3/uL (150-450); RED BLOOD COUNT 4.01 10^6/uL (4.00-5.40); WHITE BLOOD COUNT 14.6 10^3/uL (4.0-10.0)
[2023-11-25 04:42] LABS: BASO % 0.2 % (0.0-1.0); EOS # 0.1 10^3/uL (0.0-0.5); EOS % 0.6 % (0.0-3.0); HEMATOCRIT 26.3 % (36.0-47.0); HEMOGLOBIN 8.8 g/dl (12.0-15.5); LYMPH # 1.1 10^3/uL (1.5-5.0); LYMPH % 8.4 % (24.0-44.0); MEAN CORPUSCULAR HEMOGLOBIN 22.7 pg (27.0-33.0); MEAN CORPUSCULAR HGB CONC 33.5 g/dl (32.0-36.5); MONO # 1.8 10^3/uL (0.0-0.8); MONO % 14.5 % (2.0-8.0); NEUTROPHILS # 9.5 10^3/uL (1.5-8.5); NEUTROPHILS % 75.8 % (36.0-66.0); PLATELET COUNT, AUTOMATED 172 10^3/uL (150-450); RED BLOOD COUNT 3.87 10^6/uL (4.00-5.40); WHITE BLOOD COUNT 12.5 10^3/uL (4.0-10.0)
[2023-11-25 05:06] LABS: BLOOD UREA NITROGEN 18 MG/DL (9-23); CALCIUM LEVEL 8.9 MG/DL (8.3-10.6); CARBON DIOXIDE LEVEL 24 MMOL/L (20-31); CHLORIDE LEVEL 105 MMOL/L (98-107); CREATININE FOR GFR 0.68 MG/DL (0.55-1.30); GLOMERULAR FILTRATION RATE > 60.0 (>32); GLUCOSE, FASTING 134 MG/DL (74-106); POTASSIUM SERUM 4.3 MMOL/L (3.5-5.1); SODIUM LEVEL 136 MMOL/L (136-145)
[2023-11-26] VITALS (9 sets, daily range): BP systolic 119–129; BP diastolic 56–66; TEMP 97.7–98.4; O2SAT 90–97
[2023-11-26 04:41] LABS: BASO % 0.1 % (0.0-1.0); EOS # 0.1 10^3/uL (0.0-0.5); EOS % 0.5 % (0.0-3.0); HEMOGLOBIN 8.6 g/dl (12.0-15.5); LYMPH % 9.4 % (24.0-44.0); MEAN CORPUSCULAR HEMOGLOBIN 22.8 pg (27.0-33.0); MEAN CORPUSCULAR HGB CONC 33.1 g/dl (32.0-36.5); MONO # 1.7 10^3/uL (0.0-0.8); MONO % 15.2 % (2.0-8.0); NEUTROPHILS # 8.3 10^3/uL (1.5-8.5); NEUTROPHILS % 74.3 % (36.0-66.0); PLATELET COUNT, AUTOMATED 172 10^3/uL (150-450); RED BLOOD COUNT 3.77 10^6/uL (4.00-5.40); WHITE BLOOD COUNT 11.1 10^3/uL (4.0-10.0)
[2023-11-26 05:05] LABS: BLOOD UREA NITROGEN 17 MG/DL (9-23); CALCIUM LEVEL 9.3 MG/DL (8.3-10.6); CARBON DIOXIDE LEVEL 27 MMOL/L (20-31); CHLORIDE LEVEL 106 MMOL/L (98-107); CREATININE FOR GFR 0.56 MG/DL (0.55-1.30); GLOMERULAR FILTRATION RATE > 60.0 (>32); GLUCOSE, FASTING 115 MG/DL (74-106); POTASSIUM SERUM 4.2 MMOL/L (3.5-5.1); SODIUM LEVEL 138 MMOL/L (136-145)
[2023-11-26] MEDS: SENNA 8.6 MG TAB (SENOKOT) PO SCH (20:39)
[2023-11-27] VITALS: BP 118/56; TEMP 97.8; O2SAT 93
[2023-11-27 04:00] VITALS: BP 130/70; TEMP 97.4; O2SAT 90
[2023-11-27 05:14] LABS: BASO % 0.1 % (0.0-1.0); EOS # 0.1 10^3/uL (0.0-0.5); EOS % 0.9 % (0.0-3.0); HEMATOCRIT 26.3 % (36.0-47.0); HEMOGLOBIN 8.5 g/dl (12.0-15.5); LYMPH # 0.9 10^3/uL (1.5-5.0); LYMPH % 9.5 % (24.0-44.0); MEAN CORPUSCULAR HEMOGLOBIN 22.5 pg (27.0-33.0); MEAN CORPUSCULAR HGB CONC 32.3 g/dl (32.0-36.5); MEAN CORPUSCULAR VOLUME 69.8 fl (80.0-96.0); MONO # 1.3 10^3/uL (0.0-0.8); MONO % 13.2 % (2.0-8.0); NEUTROPHILS # 7.3 10^3/uL (1.5-8.5); NEUTROPHILS % 75.8 % (36.0-66.0); PLATELET COUNT, AUTOMATED 165 10^3/uL (150-450); RED BLOOD COUNT 3.77 10^6/uL (4.00-5.40); WHITE BLOOD COUNT 9.7 10^3/uL (4.0-10.0)
[2023-11-27 05:40] LABS: BLOOD UREA NITROGEN 16 MG/DL (9-23); CALCIUM LEVEL 9.5 MG/DL (8.3-10.6); CARBON DIOXIDE LEVEL 26 MMOL/L (20-31); CHLORIDE LEVEL 105 MMOL/L (98-107); CREATININE FOR GFR 0.59 MG/DL (0.55-1.30); GLOMERULAR FILTRATION RATE > 60.0 (>32); GLUCOSE, FASTING 103 MG/DL (74-106); POTASSIUM SERUM 4.3 MMOL/L (3.5-5.1); SODIUM LEVEL 138 MMOL/L (136-145)
[2023-11-27 08:00] VITALS: BP 142/66; TEMP 98.7; O2SAT 93
[2023-11-27 12:00] VITALS: BP 122/65; TEMP 98.4; O2SAT 90
[2023-11-27] MEDS: metFORMIN (GLUCOPHAGE) 500MG TAB PO SCH (18:00)
[2023-11-29] MEDS: LORazepam 1 MG TAB PO PRN (09:19)
[2023-11-29] MEDS: ONDANSETRON 4MG ORAL DISINTEGRATING TAB PO PRN (09:54)
[2023-11-30 09:18] VITALS: BP 128/62
[2023-12-01] MEDS: ASPIRIN 81MG ENTERIC TABLET PO SCH (08:57)
[2023-12-02] MEDS: MORPHINE 10MG/0.5ML ORAL CONCENTRATE SOLUTION U/D SL PRN (09:43)
[2023-12-02] MEDS: DOCUSATE SOD LIQ 100MG/10ML UDC PO SCH (14:04)
[2023-12-02] MEDS: ASPIRIN 81MG CHEW TABLET PO SCH (14:04)
[2023-12-02] MEDS: LEVALBUTEROL 1.25MG 0.5ML CONCENTRATE NEB INH PRN (22:38)
[2023-12-02] MEDS: SCOPOLAMINE 1MG TRANSDERMAL PATCH TOP PRN (23:45)
[2023-12-03] MEDS ORDERED: LORazepam 0.5 MG TAB PO PRN (01:30)
[2023-12-03] MEDS ORDERED: MORPHINE 10MG/0.5ML ORAL CONCENTRATE SOLUTION U/D SL PRN (01:40)
[2023-12-03] MEDS: LORazepam 0.5 MG TAB PO ONE (01:45)
[2023-12-03] MEDS: LORazepam 0.5 MG TAB PO PRN (05:51)
== END 2023-12-03 11:29 | disposition expired | DRG 180 ==
LOC: M ED 14:57 → M ED INP 18:24 → ENRESERV 22:04 → M ICU 22:30 → M MSPAV 11-27 18:42
PROVIDERS: ADMIT Student in an Organized Health Care Education/Training Program; ATTEND Internal Medicine
PROC: 0W9B30Z Drainage of Left Pleural Cavity with Drainage Device, Percutaneous Approach (ICD-10-PCS; principal; 2023-11-21)
PROC: 0W9B30Z Drainage of Left Pleural Cavity with Drainage Device, Percutaneous Approach (ICD-10-PCS; 2023-11-24)
DX: C34.90 Malignant neoplasm of unspecified part of unspecified bronchus or lung (principal); I26.99 Other pulmonary embolism without acute cor pulmonale; A41.9 Sepsis, unspecified organism; R65.21 Severe sepsis with septic shock; J18.9 Pneumonia, unspecified organism; J96.01 Acute respiratory failure with hypoxia; E87.20 Acidosis, unspecified; I31.39 Other pericardial effusion (noninflammatory); J90 Pleural effusion, not elsewhere classified; J94.2 Hemothorax; D68.32 Hemorrhagic disorder due to extrinsic circulating anticoagulants; D62 Acute posthemorrhagic anemia; C78.2 Secondary malignant neoplasm of pleura; J93.9 Pneumothorax, unspecified; I82.C12 Acute embolism and thrombosis of left internal jugular vein; R57.1 Hypovolemic shock; E11.9 Type 2 diabetes mellitus without complications; F32.A Depression, unspecified; R63.4 Abnormal weight loss; I10 Essential (primary) hypertension; R59.0 Localized enlarged lymph nodes; R13.12 Dysphagia, oropharyngeal phase; E55.9 Vitamin D deficiency, unspecified; Z88.0 Allergy status to penicillin; Z88.8 Allergy status to other drugs, medicaments and biological substances; Z79.899 Other long term (current) drug therapy; Z79.82 Long term (current) use of aspirin; Z86.73 Personal history of transient ischemic attack (TIA), and cerebral infarction without residual deficits; Z66 Do not resuscitate; Z51.5 Encounter for palliative care